=== PATIENT | female | born 1960 | race African-American/Black ===

== ENCOUNTER 2023-11-28 20:41 | Emergency (ER) | payer MEDICAID ==
[~2023-11-28] VITALS: Ht 172.7 cm; Wt 78.0 kg
[2023-11-28 21:17] LABS: BASOPHILS % 0.9 % (0.0-2.0); EOSINOPHILS % 2.4 % (0.0-5.0); HEMATOCRIT. 40.6 % (36.0-48.0); HEMOGLOBIN. 13.7 g/dL (12.0-16.0); LYMPHOCYTES % 15.7 % (20.0-50.0); MEAN CORPUSCULAR HEMOGLOBIN 31.9 pg (28.0-32.0); MEAN CORPUSCULAR HGB CONC 33.7 g/dL (31.0-37.0); MEAN CORPUSCULAR VOLUME 94.6 fL (81.0-99.0); MEAN PLATELET VOLUME 7.2 fl (7.4-10.4); MONOCYTES % 5.6 % (2.0-8.0); NEUTROPHILS % 75.4 % (40.0-76.0); PLATELET 322 x1000/uL (130-400); RED CELL DISTRIBUTION WIDTH 14.9 % (11.6-14.6); WHITE BLOOD COUNT 10.1 x1000/uL (4.5-11.0)
[2023-11-28 21:23] LABS: CHLORIDE 104 mEq/L (98-107); POTASSIUM 3.2 mEq/L (3.5-5.1); SODIUM 141 mEq/L (136-145)
[2023-11-28 21:24] LABS: CALCIUM 9.3 mg/dL (8.7-10.4); CARBON DIOXIDE 32 mEq/L (21-32)
[2023-11-28 21:29] LABS: CREATININE 1.5 mg/dL (0.6-1.0); GLUCOSE 114 mg/dL (70-105); UREA NITROGEN BLOOD 11 mg/dL (9-23)
[2023-11-28 21:30] LABS: TROPONIN I HIGH SENSITIVITY 6 ng/L (3.0-34)
[2023-11-28 21:31] VITALS: O2SAT 98
[2023-11-28] MEDS: ACETAMINOPHEN 325MG TABLET PO ONE (22:27)
[2023-11-29] VITALS: TEMP 98.2
[2023-11-29 00:02] LABS: TROPONIN I HIGH SENSITIVITY < 4 ng/L (3.0-34)
[2023-11-29 01:45] VITALS: BP 133/63; PULSE 64; RESP 13
[2023-11-29] MEDS ORDERED: BACL-141 MT (01:55)
[2023-11-29] MEDS ORDERED: ACET-2708 MT (01:55)
[2023-11-29 02:18] LABS: CLARITY URINE CLOUDY (CLEAR); COLOR URINE YELLOW (YELLOW); PROTEIN URINE 2+ (NEGATIVE); SPECIFIC GRAVITY URINE 1.015 (1.005-1.030)
[2023-11-29 02:19] LABS: GLUCOSE URINE 1+ (NEGATIVE); KETONES URINE NEGATIVE (NEGATIVE); LEUKOCYTE ESTERASE URINE 3+ (NEGATIVE); NITRITE URINE POSITIVE (NEGATIVE); OCCULT BLOOD URINE 3+ (NEGATIVE)
[2023-11-29 02:22] LABS: BACTERIA URINE 3+; RBC URINE 15-25 /hpf (0-2); SQUAMOUS EPITHELIAL CELL URINE 3+ /lpf (RARE/1+); TRICHOMONAS URINE 3+
[2023-11-29] MEDS ORDERED: NITR-87 MT (02:29)
== END 2023-11-29 02:05 | disposition home or self-care (01) ==
LOC: ER 20:41
DX: M79.604 Pain in right leg (principal); R06.02 Shortness of breath; I10 Essential (primary) hypertension; E78.00 Pure hypercholesterolemia, unspecified; J45.909 Unspecified asthma, uncomplicated; N39.0 Urinary tract infection, site not specified; Z91.148 Patient's other noncompliance with medication regimen for other reason; Z00.00 Encounter for general adult medical examination without abnormal findings
CPT/HCPCS: 36415; 71045; 80048; 81003; 84484; 85025; 93005; 93971; 99285

== ENCOUNTER 2024-06-23 23:39 | Emergency (ER) | payer MEDICAID ==
[~2024-06-23] VITALS: Ht 170.2 cm; Wt 76.0 kg
[~2024-06-23 23:39] MED LIST: ACET-2708 MT; BACL-141 MT; NITR-87 MT
[2024-06-23 23:42] VITALS: BP 144/80; TEMP 98; O2SAT 96
[2024-06-24] MEDS ORDERED: ALBU18HF2 IH (03:09)
[2024-06-24] MEDS: IPRATROPIUM/ALBUTEROL 0.5-3(2.5)MG/3ML NEB HHN ONE (03:28)
[2024-06-24 03:31] VITALS: PULSE 92; RESP 18
== END 2024-06-24 04:24 | disposition home or self-care (01) ==
LOC: ER 23:39
DX: J45.901 Unspecified asthma with (acute) exacerbation (principal); M79.7 Fibromyalgia; I10 Essential (primary) hypertension
CPT/HCPCS: 94640; 99283